=== PATIENT | female | born 1950 | race Caucasian/White ===

== ENCOUNTER 2018-02-28 09:03 | Emergency (ER) | payer MEDICARE, OTHER ==
[~2018-02-28] VITALS: Ht 157.5 cm; Wt 75.5 kg
[~2018-02-28 09:03] MED LIST: AMOX500T PO; AUGM875T PO; MEDR4PAK3 PO
[2018-02-28 09:14] VITALS: BP 156/80; PULSE 75; RESP 18; TEMP 98; O2SAT 95
[2018-02-28 09:56] LABS: AUTOMATED NEUTROPHIL # 4.2 TH/MM3 (1.8-7.7); BASOPHIL # 0.1 TH/MM3 (0-0.2); EOSINOPHIL # 0.1 TH/MM3 (0-0.4); EOSINOPHIL % 1.4 % (0.0-4.0); HEMATOCRIT 41.2 % (35.0-46.0); HEMOGLOBIN 13.8 GM/DL (11.6-15.3); LYMPH % 26.9 % (9.0-44.0); LYMPHOCYTE # 1.8 TH/MM3 (1.0-4.8); MEAN CELL VOLUME 89.3 FL (80.0-100.0); MEAN CORPUSCULAR HEMOGLOBIN 29.8 PG (27.0-34.0); MEAN CORPUSCULAR HGB CONC 33.4 % (32.0-36.0); MEAN PLATELET VOLUME 8.3 FL (7.0-11.0); MONO % 6.6 % (0.0-8.0); MONOCYTE # 0.4 TH/MM3 (0-0.9); NEUT % 64.1 % (16.0-70.0); PLATELET COUNT 229 TH/MM3 (150-450); RED BLOOD COUNT 4.61 MIL/MM3 (4.00-5.30); RED CELL DISTRIBUTION WIDTH 12.5 % (11.6-17.2); WHITE BLOOD COUNT 6.6 TH/MM3 (4.0-11.0)
[2018-02-28 10:26] LABS: CALCIUM 8.7 MG/DL (8.5-10.1)
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
[2018-02-28 10:30] LABS: CREATININE 0.8 MG/DL (0.50-1.00)
[2018-02-28 10:41] LABS: ALBUMIN 3.2 GM/DL (3.4-5.0); MAGNESIUM 2.1 MG/DL (1.5-2.5)
[2018-02-28 10:44] LABS: ALT (GPT) 31 U/L (10-53); DIRECT BILIRUBIN ADULT 0.1 MG/DL (0.0-0.2)
[2018-02-28 10:45] LABS: AST (GOT) 20 U/L (15-37)
[2018-02-28 10:46] LABS: INDIRECT BILIRUBIN 0.3 MG/DL (0.0-0.8); TOTAL BILIRUBIN ADULT 0.4 MG/DL (0.2-1.0); TOTAL PROTEIN 6.8 GM/DL (6.4-8.2)
[2018-02-28 10:47] LABS: ALKALINE PHOSPHATASE 94 U/L (45-117)
[2018-02-28 10:49] LABS: TROPONIN I LESS THAN 0.02 NG/ML (0.02-0.05)
[2018-02-28 11:17] VITALS: BP 144/77; PULSE 67; RESP 16; O2SAT 98
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
--- NOTE | 2018-02-28 16:16 | EKG ---
Date Performed: 02/28/2018 Time Performed: 10:03:12 PTAGE: 67 years EKG: Sinus rhythm WITH SINUS ARRHYTHMIA INFERIOR MYOCARDIAL INFARCTION ABNORMAL ECG NO PREVIOUS TRACING DOCTOR: Arnold De Souza Interpretating Date/Time 02/28/2018 16:11:55
== END 2018-02-28 11:54 | disposition home or self-care (01) ==
LOC: PHED 09:03
DX: R55 Syncope and collapse (principal); S70.12XA Contusion of left thigh, initial encounter; R53.1 Weakness; R42 Dizziness and giddiness; I49.8 Other specified cardiac arrhythmias; I25.2 Old myocardial infarction; R94.31 Abnormal electrocardiogram [ECG] [EKG]; Z86.69 Personal history of other diseases of the nervous system and sense organs; V18.4XXA Pedal cycle driver injured in noncollision transport accident in traffic accident, initial encounter
CPT/HCPCS: 73552; 80048; 80076; 83735; 84443; 84484; 85025; 93005; 99285

== ENCOUNTER 2018-07-12 20:40 | Observation (INO) ==
[2018-07-12 20:52] VITALS: TEMP 98.4
[2018-07-12] MEDS ORDERED: Sod Chloride 0.9% Inj 1,000 ML IV.SIG ONE (20:54)
--- NOTE | 2018-07-12 21:04 | ED ---
HPI General Stated Complaint: cardiac/evac Time Seen by Provider: 07/12/18 20:54 Source: patient and EMS Mode of arrival: EMS Limitations: no limitations History of Present Illness HPI narrative: The patient is a 67-year-old female that was brought in by EMS for palpitations and chest pain that started around 7:30 PM. Paramedics reports that on arrival heart rate was 240 bpm and was not responding to vagal maneuvers so they gave her 6 mg of adenosine IV with resolution of her tachycardia and a resting heart rate on arrival of 88 bpm. Patient on arrival stated that she had no more chest pain or shortness of breath. She reports the past few days of feeling palpitations as well as fatigue with normal activity. She does play tennis and exercise on a daily basis. Also reports feeling lightheaded at times and was evaluated by her primary care physician for possible vertigo. Denies spinning-like sensation. Denies recent travel. Denies previous blood clots. States she is not taking any medications. MD complaint: chest pain Complete Quality Measures for STEMI Alert Patients STEMI Alert: No Onset (ago): hour(s) (2) Duration: now resolved Onset: during rest Pain location: substernal Severity: moderate Quality: tightness Pain radiation: none Relieving factors: other (adenosine) Associated symptoms: dyspnea and palpitations Treatments prior to arrival chest pain: other (Adenosine) Related Data Home Medications Medication Instructions Recorded Confirmed No Known Home Medications 07/12/18 07/12/18 Allergies Allergy/AdvReac Type Severity Reaction Status Date / Time fexofenadine Allergy Intermediate Rash Verified 07/12/18 20:52 Review of Systems ROS: all other systems reviewed are negative Cardiovascular Reports chest pain, Reports chest pain at rest, Reports chest pain with activity , Reports rapid heart rate, Denies edema, Denies irregular heart rhythm, Denies leg edema, Reports lightheadedness, Reports palpitations and Denies dyspnea on exertion Respiratory Reports system reviewed and no additional complaints, except as docu [facility] Medical History Medical History Patient denies medical problems (Acute) Surgical History Surgical History Hx of breast surgery (Acute) Hx of knee surgery (Acute) Social History Social History (Reviewed 07/12/18 @ 21:03 by NATALIE Antonio Substance History: No History of Abuse Smoking Status: Former smoker How Often Do You Have a Drink Containing Alcohol: Never Recent Travel in [facility] within the Last 8 Weeks: No Recent Out of Country Travel within the Last 8 Weeks: No Immunization History Tetanus Immunization: Unable to Assess Hx Influenza Vaccine This Season: No Exam Narrative Exam Narrative: GENERAL: Alert and oriented in no distress SKIN: Focused skin assessment warm/dry. HEAD: Atraumatic. Normocephalic. EYES: Pupils equal and round. No scleral icterus. No injection or drainage. ENT: No nasal bleeding or discharge. Mucous membranes pink and moist. NECK: Trachea midline. No JVD. CARDIOVASCULAR: Regular rate and rhythm. No murmur appreciated. RESPIRATORY: No accessory muscle use. Clear to auscultation. Breath sounds equal bilaterally. GASTROINTESTINAL: Abdomen soft, non-tender, nondistended. Hepatic and splenic margins not palpable. MUSCULOSKELETAL: No obvious deformities. No clubbing. No cyanosis. No edema. NEUROLOGICAL: Awake and alert. No obvious cranial nerve deficits. Motor grossly within normal limits. Normal speech. PSYCHIATRIC: Appropriate mood and affect; insight and judgment normal. Course Reevaluation(s) Reevaluation #1: Elevated d-dimer of 0.[address] angiogram to rule out pulmonary embolism. Patient still asymptomatic without any chest pain or shortness of breath. Stable vitals blood pressure 126/71 pulse of 88 bpm. Time: 22:14 Initial Documented Vital Signs Temperature 98.4 F 07/12/18 20:46 Pulse Rate 89 07/12/18 20:46 Respiratory Rate 18 07/12/18 20:46 Blood Pressure 126/71 07/12/18 20:46 Pulse Oximetry 98 07/12/18 20:46 Last Documented Vital Signs Temperature 98.4 F 07/12/18 20:52 Pulse Rate 59 L 07/13/18 06:00 Respiratory Rate 18 07/13/18 06:00 Blood Pressure 119/55 L 07/13/18 06:00 Pulse Oximetry 97 07/13/18 06:00 Medical Decision Making MDM Narrative Medical Screen Exam Complete: Yes Emergency Medical Condition: Yes Lab Data Result diagrams: 07/12/18 21:05 07/12/18 21:05 Lab Results 08/15/18 08/15/18 08/15/18 Range/Units 21:05 21:05 21:05 WBC 10.4 (4.0-11.0) th/mm3 RBC 4.64 (4.00-5.30) mil/mm3 Hgb 14.5 (11.6-15.3) gm/dL Hct 42.5 (35.0-46.0) % MCV 91.7 (80.0-100.0) fL MCH 31.3 (27.0-34.0) pg MCHC 34.2 (32.0-36.0) % RDW 13.2 (11.6-17.2) % Plt Count 227 (150-450) th/mm3 MPV 8.7 (7.0-11.0) fL Neut % (Auto) 69.9 (16.0-70.0) % Lymph % (Auto) 23.4 (9.0-44.0) % [place] % (Auto) 5.6 (0.0-8.0) % Eos % (Auto) 0.6 (0.0-4.0) % Baso % (Auto) 0.5 (0.0-2.0) % Neut # (Auto) 7.3 (1.8-7.7) th/mm3 Lymph # (Auto) 2.4 (1.0-4.8) th/mm3 [place] # (Auto) 0.6 (0.0-0.9) th/mm3 Eos # (Auto) 0.1 (0.0-0.4) th/mm3 Baso # (Auto) 0.1 (0.0-0.2) th/mm3 WBC Differential . Differential Comment Auto diff final PT (9.8-11.6) sec INR Ratio APTT (24.3-30.1) sec D-Dimer Quant (PE/DVT) 0.53 H (0.00-0.50) mg/L FEU Sodium 140 (136-145) meq/L Potassium 3.7 (3.5-5.1) meq/L Chloride 106 (98-107) meq/L Carbon Dioxide 26.7 (21.0-32.0) meq/L Anion Gap 7 (5-15) meq/L BUN 23 H (7-18) mg/dL Creatinine 0.83 (0.50-1.00) mg/dL Estimated GFR 69 L (>89) mL/min Random Glucose 135 H (74-106) mg/dL Calcium 8.5 (8.5-10.1) mg/dL Total Bilirubin 0.3 (0.2-1.0) mg/dL AST 98 H (15-37) U/L ALT 116 H (10-53) U/L Alkaline Phosphatase 91 (45-117) U/L Total Creatine Kinase 66 (26-192) U/L Troponin I 0.03 (0.02-0.05) ng/mL Total Protein 6.9 (6.4-8.2) g/dL Albumin 3.2 L (3.4-5.0) g/dL 07/12/18 07/13/18 07/13/18 Range/Units 21:05 03:10 06:35 WBC (4.0-11.0) th/mm3 RBC (4.00-5.30) mil/mm3 Hgb (11.6-15.3) gm/dL Hct (35.0-46.0) % MCV (80.0-100.0) fL MCH (27.0-34.0) pg MCHC (32.0-36.0) % RDW (11.6-17.2) % Plt Count (150-450) th/mm3 MPV (7.0-11.0) fL Neut % (Auto) (16.0-70.0) % Lymph % (Auto) (9.0-44.0) % [place] % (Auto) (0.0-8.0) % Eos % (Auto) (0.0-4.0) % Baso % (Auto) (0.0-2.0) % Neut # (Auto) (1.8-7.7) th/mm3 Lymph # (Auto) (1.0-4.8) th/mm3 [place] # (Auto) (0.0-0.9) th/mm3 Eos # (Auto) (0.0-0.4) th/mm3 Baso # (Auto) (0.0-0.2) th/mm3 WBC Differential Differential Comment PT 10.1 (9.8-11.6) sec INR 1.0 Ratio APTT 24.4 (24.3-30.1) sec D-Dimer Quant (PE/DVT) (0.00-0.50) mg/L FEU Sodium (136-145) meq/L Potassium (3.5-5.1) meq/L Chloride (98-107) meq/L Carbon Dioxide (21.0-32.0) meq/L Anion Gap (5-15) meq/L BUN (7-18) mg/dL Creatinine (0.50-1.00) mg/dL Estimated GFR (>89) mL/min Random Glucose (74-106) mg/dL Calcium (8.5-10.1) mg/dL Total Bilirubin (0.2-1.0) mg/dL AST (15-37) U/L ALT (10-53) U/L Alkaline Phosphatase (45-117) U/L Total Creatine Kinase 120 64 (26-192) U/L Troponin I 0.49 H D 0.47 H (0.02-0.05) ng/mL Total Protein (6.4-8.2) g/dL Albumin (3.4-5.0) g/dL Imaging Data Radiologist's impression: Chest X-Ray 07/12/18 20:54 CONCLUSION: Moderate commentated cardiomegaly without infiltrate or failure. Marked scoliosis convexity directed towards the right Chest CTA 07/12/18 23:06 CONCLUSION: 1. No pulmonary embolus. 2. Gallstone 3. Small left renal stones. ECG Data Attestation: I personally reviewed and interpreted this ECG as follows: Interpretation: EKG obtained 8:56 PM reveals sinus rhythm with a rate of 88 bpm. QRS S 83, SC 128, QTc within normal limits. Nonspecific ST-T wave abnormalities. Normal axis. No STEMI Discharge Plan Discharge Disposition Patient Disposition: 30 Still Patient Discharge Condition Condition: Stable Discharge Order Discharge Orders: Discharge Order (Routine); Ordered 07/13/18 Ordered By: Kelley Severino Discharge Details Anticipated Discharge Date: 07/13/18 Diagnosis: SVT (supraventricular tachycardia) Physicians Team ED Provider: Arvind Mata Primary Care Provider: Deion Dela Cruz Attending Provider: Vel Klein Other Providers: Ryley Ayala Discharge Interventions Interventions: ED Discharge Assessment Last Done: 07/13/18 12:40 Status ED Status: Left Department Discharge Information Discharge Date/Time: 07/13/18 13:17
[2018-07-12 21:23] LABS: Baso # (Auto) 0.1 th/mm3 (0.0-0.2); Baso % (Auto) 0.5 % (0.0-2.0); Eos # (Auto) 0.1 th/mm3 (0.0-0.4); Eos % (Auto) 0.6 % (0.0-4.0); Hematocrit 42.5 % (35.0-46.0); Hemoglobin 14.5 gm/dL (11.6-15.3); Lymph # (Auto) 2.4 th/mm3 (1.0-4.8); Lymph % (Auto) 23.4 % (9.0-44.0); Mean Corpuscular HGB Conc 34.2 % (32.0-36.0); Mean Corpuscular Hemoglobin 31.3 pg (27.0-34.0); Mean Corpuscular Volume 91.7 fL (80.0-100.0); Mean Platelet Volume 8.7 fL (7.0-11.0); Mono # (Auto) 0.6 th/mm3 (0.0-0.9); Mono % (Auto) 5.6 % (0.0-8.0); Neut # (Auto) 7.3 th/mm3 (1.8-7.7); Neut % (Auto) 69.9 % (16.0-70.0); Platelet Count 227 th/mm3 (150-450); Red Blood Count 4.64 mil/mm3 (4.00-5.30); Red Cell Distribution Width 13.2 % (11.6-17.2); White Blood Count 10.4 th/mm3 (4.0-11.0)
[2018-07-12 21:40] LABS: Albumin 3.2 g/dL (3.4-5.0); Anion Gap 7 meq/L (5-15); Aspartate Aminotransferase 98 U/L (15-37); Blood Urea Nitrogen 23 mg/dL (7-18); Calcium 8.5 mg/dL (8.5-10.1); Carbon Dioxide 26.7 meq/L (21.0-32.0); Chloride 106 meq/L (98-107); Glomerular Filtration Rate 69 mL/min (>89); Glucose,Random 135 mg/dL (74-106); Potassium 3.7 meq/L (3.5-5.1); Sodium 140 meq/L (136-145)
[2018-07-12 21:47] LABS: Alanine Aminotransferase 116 U/L (10-53); Alkaline Phosphatase 91 U/L (45-117); Total Protein 6.9 g/dL (6.4-8.2); Troponin I 0.03 ng/mL (0.02-0.05)
[2018-07-12 21:48] LABS: Creatine Kinase 66 U/L (26-192)
--- NOTE | 2018-07-12 21:53 | XR ---
EXAM DATE: 07/12/2018 9:17 PM EDT AGE/SEX: 67 years / Female INDICATIONS: Short of breath. CLINICAL DATA: This is the patient's initial encounter. Patient reports that signs and symptoms have been present for 1 day and indicates a pain score of 0/10. MEDICAL/SURGICAL HISTORY: None. None. COMPARISON: No prior exams available for comparison. FINDINGS: Marked scoliosis with moderate cardiomegaly. There is no infiltrate or failure. There is no significant pleural effusion. CONCLUSION: Moderate commentated cardiomegaly without infiltrate or failure. Marked scoliosis convexity directed towards the right Electronically signed by: Charlie Iyer MD 07/12/2018 9:51 PM EDT
[2018-07-12 22:54] LABS: Activated Partial Thrombo Time 24.4 sec (24.3-30.1); Prothrombin Time 10.1 sec (9.8-11.6)
--- NOTE | 2018-07-12 23:35 | CT ---
EXAM DATE: 07/12/2018 11:22 PM EDT AGE/SEX: 67 years / Female INDICATIONS: Chest pain, elevated D-dimer with tachycardia. CLINICAL DATA: This is the patient's initial encounter. Patient reports that signs and symptoms have been present for 1 day and indicates a pain score of 4/10. MEDICAL/SURGICAL HISTORY: None. None. RADIATION DOSE: 10.22 CTDI (mGy) COMPARISON: No prior exams available for comparison. TECHNIQUE: Volumetric scanning was performed using a multi-row detector CT scanner during bolus infu marilyn of 74 ml Omnipaque 350 (iohexol) nonionic water-soluble contrast as a single exam dose. The jimmie a was post processed with a variety of visualization algorithms including full volume maximum intensi ty projection and sliding thin slab reformation. Using automated exposure control and adjustment of t he mA and/or kV according to patient size, radiation dose was kept as low as reasonably achievable to obtain optimal diagnostic quality images. DICOM format image data is available electronically for r eview and comparison. FINDINGS: Pulmonary Arteries: No filling defects are seen in the pulmonary arteries out to the subsegmental ve ssels. The left and right pulmonary arteries are normal in diameter. Lung: There is minimal increased density at the lateral posterior left lingula likely related to min imal atelectasis. Effusion: None. Mediastinum: No evidence of mediastinal or hilar adenopathy. Other: The axilla is unremarkable. There is a dextroscoliosis of the thoracic spine. There is a calc ified gallstone in a nondistended gallbladder. There are small nonobstructing left renal stones seen. CONCLUSION: 1. No pulmonary embolus. 2. Gallstone 3. Small left renal stones. Electronically signed by: Humberto Topete MD 07/12/2018 11:33 PM EDT
[2018-07-13] MEDS ORDERED: Acetaminophen 325 MG Tablet PO PRN (00:45)
[2018-07-13 04:15] LABS: Troponin I 0.49 ng/mL (0.02-0.05)
[2018-07-13 06:40] VITALS: BP 119/55; PULSE 59; RESP 18; O2SAT 97
[2018-07-13 07:19] LABS: Troponin I 0.47 ng/mL (0.02-0.05)
--- NOTE | 2018-07-13 07:53 | P.CONCA ---
History of Present Illness Primary Care Provider: Deion Dela Cruz History of Present Illness: 67-year-old female with a past medical history of orthostatic hypotension who presented by EMS after an episode of SVT. The patient was seen in our office earlier this year for positional dizziness with associated chest pain. She had an ETT SPECT in January with no evidence of ischemia. She had an echocardiogram in February which was essentially normal. She had an event monitor in February that showed lightheadedness associated with NSR and PACs. Her symptoms were associated with orthostatic hypotension. The patient continues to have episodes of lightheadedness, to this week after working out, but states she does not really much drink water even before/during her workouts. She states this is because she subscribes to a low-sodium diet and is never thirsty. Regardless, yesterday evening, the patient was having palpitations. She was having a stressful phone call regarding her nephew at the time. She states that normally she gets heart racing sensation about twice per year. She states her symptoms usually only lasts about a minute, but after symptoms persisted for over 20 minutes she called EMS. Reportedly EMS found the patient in SVT with heart rate to 40, no strips available here in the ED. Vagal maneuvers were unsuccessful. Patient was given adenosine 6 mg and converted to NSR. Has remained NSR and asymptomatic here in the ED overnight. Review of Systems All other systems reviewed negative except as stated in HPI PMFSH - History History Provided By: Patient - Medical History Medical History: Medical History (Last Reviewed 07/12/18 @ 21:03 by Arvind Mata DO) Patient denies medical problems - Surgical History Surgical History: Surgical History (Last Reviewed 07/12/18 @ 21:03 by Arvind Mata DO) Hx of breast surgery Hx of knee surgery - Tobacco History Smoking Status: Former smoker - Alcohol History How Often Do You Have a Drink Containing Alcohol: Never - Substance Use History Substance History: No History of Abuse - Travel History Recent Travel in the [place] Within the Last 8 Weeks: No Recent Travel Out of the Country Within the Last 8 Weeks: No - Immunization History Tetanus Immunization: Unable to Assess Hx Influenza Vaccine This Season: No Medications and Allergies Active Medications: Active Medications Acetaminophen (Tylenol) 650 mg PO Q4H PRN PRN Reason: Temp > 100.4 Lactulose (Lactulose Liq) 30 ml PO DAILY PRN PRN Reason: SEVERE CONSITIPATION Ondansetron HCl (Zofran Inj) 4 mg IV.PUSH Q6H PRN PRN Reason: NAUSEA OR VOMITING Allergies Allergy/AdvReac Type Severity Reaction Status Date / Time fexofenadine Allergy Intermediate Rash Verified 07/12/18 20:52 Home Medications Medication Instructions Recorded Confirmed Type No Known Home Medications 07/12/18 07/12/18 History Exam Vital signs: Vital Signs 07/12/18 20:46 07/12/18 20:52 07/12/18 23:00 Temperature 98.4 F 98.4 F Pulse Rate 89 88 74 Respiratory Rate 16 Blood Pressure 126/71 126/71 136/63 Pulse Oximetry 98 98 99 07/13/18 00:45 07/13/18 03:00 07/13/18 06:00 Temperature Pulse Rate 70 60 59 L Respiratory Rate Blood Pressure 127/77 112/57 L 119/55 L Pulse Oximetry 98 99 97 Intake & Output 07/12/18 07/13/18 07/13/18 18:59 06:59 18:59 Weight 165 lb Narrative: GENERAL: Well-developed well-nourished. In no acute distress. NECK: No carotid bruits. No JVD. CARDIOVASCULAR: Regular rate and rhythm. No murmur appreciated. RESPIRATORY: No accessory muscle use. Clear to auscultation. Breath sounds equal bilaterally. MUSCULOSKELETAL: No clubbing or cyanosis. No edema. NEUROLOGICAL: Awake and alert. Normal speech. Results 07/12/18 21:05 07/12/18 21:05 Cardiac Enzymes 07/12/18 07/13/18 07/13/18 Range/Units 21:05 03:10 06:35 AST 98 H (15-37) U/L Troponin I 0.03 0.49 H D 0.47 H (0.02-0.05) ng/mL Coagulation 07/12/18 Range/Units 21:05 PT 10.1 (9.8-11.6) sec APTT 24.4 (24.3-30.1) sec CBC 07/12/18 Range/Units 21:05 WBC 10.4 (4.0-11.0) th/mm3 RBC 4.64 (4.00-5.30) mil/mm3 Hgb 14.5 (11.6-15.3) gm/dL Hct 42.5 (35.0-46.0) % Plt Count 227 (150-450) th/mm3 Neut # (Auto) 7.3 (1.8-7.7) th/mm3 Lymph # (Auto) 2.4 (1.0-4.8) th/mm3 [place] # (Auto) 0.6 (0.0-0.9) th/mm3 Eos # (Auto) 0.1 (0.0-0.4) th/mm3 Baso # (Auto) 0.1 (0.0-0.2) th/mm3 Comprehensive Metabolic Panel 07/12/18 Range/Units 21:05 Sodium 140 (136-145) meq/L Potassium 3.7 (3.5-5.1) meq/L Chloride 106 (98-107) meq/L Carbon Dioxide 26.7 (21.0-32.0) meq/L BUN 23 H (7-18) mg/dL Creatinine 0.83 (0.50-1.00) mg/dL Calcium 8.5 (8.5-10.1) mg/dL AST 98 H (15-37) U/L ALT 116 H (10-53) U/L Alkaline Phosphatase 91 (45-117) U/L Total Protein 6.9 (6.4-8.2) g/dL Albumin 3.2 L (3.4-5.0) g/dL Intake and Output 07/12/18 07/13/18 07/13/18 22:59 06:59 14:59 Other: Weight 165 lb Assessment and Plan - Plan 67-year-old female with a past medical history of orthostatic hypotension who presented by EMS after an episode of SVT per report. SVT: Recent negative cardiac workup. Patient educated on vagal maneuvers. Heart rate currently 59, not a candidate for AV ervin agent with resting bradycardia. Okay for discharge from cardiology perspective today and will plan on outpatient EP evaluation for possible SVT ablation. Orthostatic dizziness: Encouraged hydration. Elevated troponin: Troponin 0.03->0.49->0.47, demand mediated secondary to tachycardia and recent stress test nonischemic. No further workup indicated at this time. Discussed Condition With: Patient, ED RN, Dr. Ayala
--- NOTE | 2018-07-13 09:35 | P.HP ---
<Kelley Severino W - Last Filed: 07/13/18 12:22> History of Present Illness Primary Care Physician: Deion Dela Cruz Chief Complaint: heart racing last night- resolved History of Present Illness: This is a 67-year-old female with a past medical history of orthostatic hypotension, arthritis, sciatica, who presented by EMS after an episode of SVT. Yesterday evening, the patient was having palpitations. She was having a stressful phone call regarding her nephew at the time. She states that normally she gets heart racing sensation about twice per year. She states her symptoms usually only lasts about a minute, but after symptoms persisted for over 20 minutes she called EMS. Reportedly EMS found the patient in SVT with heart rate upto 240, no strips available here in the ED. Vagal maneuvers were unsuccessful. Patient was given adenosine 6 mg and converted to NSR. Has remained NSR and asymptomatic here in the ED overnight. Reports feeling much better at this time and is asking to go home. Denies chest pain shortness of breath nausea vomiting diarrhea constipation fevers chills cough or congestion. past medical history orthostatic hypotension, arthritis, sciatica past surgical history knee arthroplasty social history Denies ETOH use denies tobacco use now or in the past family medical history reviewed and noncontributory - Diagnosis (1) SVT (supraventricular tachycardia) Review of Systems All other systems reviewed negative except as stated in HPI PMFSH - History History Provided By: Patient - Medical History Medical History: Medical History (Last Reviewed 07/12/18 @ 21:03 by Arvind Mata DO) Patient denies medical problems - Surgical History Surgical History: Surgical History (Last Reviewed 07/12/18 @ 21:03 by Arvind Mata DO) Hx of breast surgery Hx of knee surgery - Tobacco History Smoking Status: Former smoker - Alcohol History How Often Do You Have a Drink Containing Alcohol: Never - Substance Use History Substance History: No History of Abuse - Travel History Recent Travel in the [place] Within the Last 8 Weeks: No Recent Travel Out of the Country Within the Last 8 Weeks: No - Immunization History Tetanus Immunization: Unable to Assess Hx Influenza Vaccine This Season: No Medications and Allergies Allergies Allergy/AdvReac Type Severity Reaction Status Date / Time fexofenadine Allergy Intermediate Rash Verified 07/12/18 20:52 Home Medications Medication Instructions Recorded Confirmed Type No Known Home Medications 07/12/18 07/12/18 History Active Medications: Active Medications Acetaminophen (Tylenol) 650 mg PO Q4H PRN PRN Reason: Temp > 100.4 Lactulose (Lactulose Liq) 30 ml PO DAILY PRN PRN Reason: SEVERE CONSITIPATION Ondansetron HCl (Zofran Inj) 4 mg IV.PUSH Q6H PRN PRN Reason: NAUSEA OR VOMITING Exam Vital signs: Vital Signs 07/12/18 20:46 07/12/18 20:52 07/12/18 23:00 Temperature 98.4 F 98.4 F Pulse Rate 89 88 74 Respiratory Rate 18 18 16 Blood Pressure 126/71 126/71 136/63 Pulse Oximetry 98 98 99 07/13/18 00:45 07/13/18 03:00 07/13/18 06:00 Temperature Pulse Rate 70 60 59 L Respiratory Rate 18 Blood Pressure 127/77 112/57 L 119/55 L Pulse Oximetry 98 99 97 Intake & Output 07/12/18 07/13/18 07/13/18 18:59 06:59 18:59 Weight 74.843 kg Narrative: GENERAL: This is a well-nourished, well-developed patient, in no apparent distress. CARDIOVASCULAR: Regular rate and rhythm RESPIRATORY: Clear to auscultation. Breath sounds equal bilaterally. GASTROINTESTINAL: Abdomen soft, non-tender, nondistended. Normal active bowel sounds MUSCULOSKELETAL: Extremities without clubbing, cyanosis, or edema. NEURO: Alert & Oriented x4 to person, place, time, situation. Moves all ext x4 Results - Labs CBC & Chem 7: 07/12/18 21:05 07/12/18 21:05 Labs: Laboratory Results - last 24 hr 07/12/18 07/12/18 07/12/18 21:05 21:05 21:05 WBC 10.4 RBC 4.64 Hgb 14.5 Hct 42.5 MCV 91.7 MCH 31.3 MCHC 34.2 RDW 13.2 Plt Count 227 MPV 8.7 Neut % (Auto) 69.9 Lymph % (Auto) 23.4 [place] % (Auto) 5.6 Eos % (Auto) 0.6 Baso % (Auto) 0.5 Neut # (Auto) 7.3 Lymph # (Auto) 2.4 [place] # (Auto) 0.6 Eos # (Auto) 0.1 Baso # (Auto) 0.1 WBC Differential . Differential Comment Auto diff final PT INR APTT D-Dimer Quant (PE/DVT) 0.53 H Sodium 140 Potassium 3.7 Chloride 106 Carbon Dioxide 26.7 Anion Gap 7 BUN 23 H Creatinine 0.83 Estimated GFR 69 L Random Glucose 135 H Calcium 8.5 Total Bilirubin 0.3 AST 98 H ALT 116 H Alkaline Phosphatase 91 Total Creatine Kinase 66 Troponin I 0.03 Total Protein 6.9 Albumin 3.2 L 07/12/18 07/13/18 07/13/18 21:05 03:10 06:35 WBC RBC Hgb Hct MCV MCH MCHC RDW Plt Count MPV Neut % (Auto) Lymph % (Auto) [place] % (Auto) Eos % (Auto) Baso % (Auto) Neut # (Auto) Lymph # (Auto) [place] # (Auto) Eos # (Auto) Baso # (Auto) WBC Differential Differential Comment PT 10.1 INR 1.0 APTT 24.4 D-Dimer Quant (PE/DVT) Sodium Potassium Chloride Carbon Dioxide Anion Gap BUN Creatinine Estimated GFR Random Glucose Calcium Total Bilirubin AST ALT Alkaline Phosphatase Total Creatine Kinase 120 64 Troponin I 0.49 H D 0.47 H Total Protein Albumin - Imaging Impressions Chest X-Ray 07/12/18 20:54 CONCLUSION: Moderate commentated cardiomegaly without infiltrate or failure. Marked scoliosis convexity directed towards the right Chest CTA 07/12/18 23:06 CONCLUSION: 1. No pulmonary embolus. 2. Gallstone 3. Small left renal stones. Caprini VTE Risk Assessment Caprini VTE Risk Assessment: No/Low Risk (score <= 1) Caprini Risk Assessment Model: Point Value = 1 Point Value = 2 Point Value = 3 Point Value = 5 Age 41-60 Minor surgery BMI > 25 kg/m2 Swollen legs Varicose veins or History of unexplained or recurrent spontaneous Oral contraceptives or hormone replacement Sepsis (< 1 month) Serious lung disease, including pneumonia (< 1 month) Abnormal pulmonary function Acute myocardial infarction Congestive heart failure (< 1 month) History of inflammatory bowel disease Medical patient at bed rest Age 61-74 Arthroscopic surgery Major open surgery (> 45 min) Laparoscopic surgery (> 45 min) Malignancy Confined to bed (> 72 hours) Immobilizing plaster cast Central venous access Age >= 75 History of VTE Family history of VTE Factor V Leiden Prothrombin [id number] Lupus anticoagulant Anticardiolipin antibodies Elevated serum homocysteine Heparin-induced thrombocytopenia Other congenital or acquired thrombophilia Stroke (< 1 month) Elective arthroplasty Hip, pelvis, or leg fracture Acute spinal cord injury (< 1 month) Prophylaxis Regimen: Total Risk Factor Score Risk Level Prophylaxis Regimen 0-1 Low Early ambulation 2 Moderate Order ONE of the following: *Sequential Compression Device (SCD) *Heparin 5000 units SQ BID 3-4 Higher Order ONE of the following medications: *Heparin 5000 units SQ TID *Enoxaparin/Lovenox 40 mg SQ daily (WT < 150 kg, CrCl > 30 mL/min) *Enoxaparin/Lovenox 30 mg SQ daily (WT < 150 kg, CrCl > 10-29 mL/min) *Enoxaparin/Lovenox 30 mg SQ BID (WT < 150 kg, CrCl > 30 mL/min) AND/OR *Sequential Compression Device (SCD) 5 or more Highest Order ONE of the following medications: *Heparin 5000 units SQ TID (Preferred with Epidurals) *Enoxaparin/Lovenox 40 mg SQ daily (WT < 150 kg, CrCl > 30 mL/min) *Enoxaparin/Lovenox 30 mg SQ daily (WT < 150 kg, CrCl > 10-29 mL/min) *Enoxaparin/Lovenox 30 mg SQ BID (WT < 150 kg, CrCl > 30 mL/min) AND *Sequential Compression Device (SCD) Assessment and Plan - Assessment (1) SVT (supraventricular tachycardia) Code(s): I47.1 - Supraventricular tachycardia Status: Acute Plan: This is a 67-year-old female with a past medical history of orthostatic hypotension, arthritis, sciatica, who presented by EMS after an episode of SVT. Yesterday evening, the patient was having palpitations. She was having a stressful phone call regarding her nephew at the time. She states that normally she gets heart racing sensation about twice per year. She states her symptoms usually only lasts about a minute, but after symptoms persisted for over 20 minutes she called EMS. Reportedly EMS found the patient in SVT with heart rate up to 240, no strips available here in the ED. Vagal maneuvers were unsuccessful. Patient was given adenosine 6 mg and converted to NSR. Has remained NSR and asymptomatic here in the ED overnight. SVT Consult to cardiology Per cardiology: The patient was seen in the cardiology office earlier this year for positional dizziness with associated chest pain. She had an ETT SPECT in January with no evidence of ischemia. She had an echocardiogram in February which was essentially normal. She had an event monitor in February that showed lightheadedness associated with NSR and PACs. Her symptoms were associated with orthostatic hypotension. The patient continues to have episodes of lightheadedness, to this week after working out, but states she does not really much drink water even before/during her workouts. She states this is because she subscribes to a low-sodium diet and is never thirsty. Recent negative cardiac workup. Patient educated on vagal maneuvers. Heart rate currently 59, not a candidate for AV ervin agent with resting bradycardia. Okay for discharge from cardiology perspective today and will plan on outpatient EP evaluation for possible SVT ablation. Orthostatic dizziness: Encouraged hydration. Elevated troponin: Troponin 0.03->0.49->0.47, demand mediated secondary to tachycardia and recent stress test nonischemic. No further workup indicated at this time. Patient cleared for DC per cardiology who recommends outpatient follow up with Dr. Mims for possible EP study and ablation <Vel Klein - Last Filed: 07/18/18 12:30> History of Present Illness Primary Care Physician: Deion Dela Cruz - Diagnosis (1) SVT (supraventricular tachycardia) [facility] - Medical History Medical History: Medical History (Last Reviewed 07/12/18 @ 21:03 by Arvind Mata DO) Patient denies medical problems - Surgical History Surgical History: Surgical History (Last Reviewed 07/12/18 @ 21:03 by Arvind Mata, ) Hx of breast surgery Hx of knee surgery Results - Labs CBC & Chem 7: 07/12/18 21:05 07/12/18 21:05 Caprini VTE Risk Assessment Caprini Risk Assessment Model: Point Value = 1 Point Value = 2 Point Value = 3 Point Value = 5 Age 41-60 Minor surgery BMI > 25 kg/m2 Swollen legs Varicose veins or History of unexplained or recurrent spontaneous Oral contraceptives or hormone replacement Sepsis (< 1 month) Serious lung disease, including pneumonia (< 1 month) Abnormal pulmonary function Acute myocardial infarction Congestive heart failure (< 1 month) History of inflammatory bowel disease Medical patient at bed rest Age 61-74 Arthroscopic surgery Major open surgery (> 45 min) Laparoscopic surgery (> 45 min) Malignancy Confined to bed (> 72 hours) Immobilizing plaster cast Central venous access Age >= 75 History of VTE Family history of VTE Factor V Leiden Prothrombin [id number] Lupus anticoagulant Anticardiolipin antibodies Elevated serum homocysteine Heparin-induced thrombocytopenia Other congenital or acquired thrombophilia Stroke (< 1 month) Elective arthroplasty Hip, pelvis, or leg fracture Acute spinal cord injury (< 1 month) Prophylaxis Regimen: Total Risk Factor Score Risk Level Prophylaxis Regimen 0-1 Low Early ambulation 2 Moderate Order ONE of the following: *Sequential Compression Device (SCD) *Heparin 5000 units SQ BID 3-4 Higher Order ONE of the following medications: *Heparin 5000 units SQ TID *Enoxaparin/Lovenox 40 mg SQ daily (WT < 150 kg, CrCl > 30 mL/min) *Enoxaparin/Lovenox 30 mg SQ daily (WT < 150 kg, CrCl > 10-29 mL/min) *Enoxaparin/Lovenox 30 mg SQ BID (WT < 150 kg, CrCl > 30 mL/min) AND/OR *Sequential Compression Device (SCD) 5 or more Highest Order ONE of the following medications: *Heparin 5000 units SQ TID (Preferred with Epidurals) *Enoxaparin/Lovenox 40 mg SQ daily (WT < 150 kg, CrCl > 30 mL/min) *Enoxaparin/Lovenox 30 mg SQ daily (WT < 150 kg, CrCl > 10-29 mL/min) *Enoxaparin/Lovenox 30 mg SQ BID (WT < 150 kg, CrCl > 30 mL/min) AND *Sequential Compression Device (SCD) Assessment and Plan - Assessment (1) SVT (supraventricular tachycardia) Code(s): I47.1 - Supraventricular tachycardia Status: Acute - Attending Attestation Patient examined. Assessment and plan formulated with Kelley BARBA I agree with the above.
--- NOTE | 2018-07-13 09:37 | P.DS ---
<Kelley Severino W - Last Filed: 07/13/18 12:22> Date of admission: 07/13/18 00:45 Primary care physician: Deion Dela Cruz Attending physician on discharge: Vel Klein Anticipated date of discharge: 07/13/18 Brief History from admission: This is a 67-year-old female with a past medical history of orthostatic hypotension, arthritis, sciatica, who presented by EMS after an episode of SVT. Yesterday evening, the patient was having palpitations. She was having a stressful phone call regarding her nephew at the time. She states that normally she gets heart racing sensation about twice per year. She states her symptoms usually only lasts about a minute, but after symptoms persisted for over 20 minutes she called EMS. Reportedly EMS found the patient in SVT with heart rate upto 240, no strips available here in the ED. Vagal maneuvers were unsuccessful. Patient was given adenosine 6 mg and converted to NSR. Has remained NSR and asymptomatic here in the ED overnight. Reports feeling much better at this time and is asking to go home. Denies chest pain shortness of breath nausea vomiting diarrhea constipation fevers chills cough or congestion. past medical history orthostatic hypotension, arthritis, sciatica past surgical history knee arthroplasty social history Denies ETOH use denies tobacco use now or in the past family medical history reviewed and noncontributory DS: Diagnosis - Discharge Diagnosis (1) SVT (supraventricular tachycardia) Status: Acute DS: Summary Hospital Course: This is a 67-year-old female with a past medical history of orthostatic hypotension, arthritis, sciatica, who presented by EMS after an episode of SVT. Yesterday evening, the patient was having palpitations. She was having a stressful phone call regarding her nephew at the time. She states that normally she gets heart racing sensation about twice per year. She states her symptoms usually only lasts about a minute, but after symptoms persisted for over 20 minutes she called EMS. Reportedly EMS found the patient in SVT with heart rate up to 240, no strips available here in the ED. Vagal maneuvers were unsuccessful. Patient was given adenosine 6 mg and converted to NSR. Has remained NSR and asymptomatic here in the ED overnight. SVT Consult to cardiology Per cardiology: The patient was seen in the cardiology office earlier this year for positional dizziness with associated chest pain. She had an ETT SPECT in January with no evidence of ischemia. She had an echocardiogram in February which was essentially normal. She had an event monitor in February that showed lightheadedness associated with NSR and PACs. Her symptoms were associated with orthostatic hypotension. The patient continues to have episodes of lightheadedness, to this week after working out, but states she does not really much drink water even before/during her workouts. She states this is because she subscribes to a low-sodium diet and is never thirsty. Recent negative cardiac workup. Patient educated on vagal maneuvers. Heart rate currently 59, not a candidate for AV ervin agent with resting bradycardia. Okay for discharge from cardiology perspective today and will plan on outpatient EP evaluation for possible SVT ablation. Orthostatic dizziness: Encouraged hydration. Elevated troponin: Troponin 0.03->0.49->0.47, demand mediated secondary to tachycardia and recent stress test nonischemic. No further workup indicated at this time. Patient cleared for DC per cardiology who recommends outpatient follow up with Dr. Mims for possible EP study and ablation - Time Spent with Patient Total time spent providing and/or coordinating discharge services: Greater than 30 minutes Exam Vital signs: Vital Signs 07/12/18 20:46 07/12/18 20:52 07/12/18 23:00 Temperature 98.4 F 98.4 F Pulse Rate 89 88 74 Respiratory Rate 16 Blood Pressure 126/71 126/71 136/63 Pulse Oximetry 98 98 99 07/13/18 00:45 07/13/18 03:00 07/13/18 06:00 Temperature Pulse Rate 70 60 59 L Respiratory Rate 18 Blood Pressure 127/77 112/57 L 119/55 L Pulse Oximetry 98 99 97 Intake & Output 07/12/18 07/13/18 07/13/18 18:59 06:59 18:59 Weight 74.843 kg Narrative: GENERAL: This is a well-nourished, well-developed patient, in no apparent distress. CARDIOVASCULAR: Regular rate and rhythm RESPIRATORY: Clear to auscultation. Breath sounds equal bilaterally. GASTROINTESTINAL: Abdomen soft, non-tender, nondistended. Normal active bowel sounds MUSCULOSKELETAL: Extremities without clubbing, cyanosis, or edema. NEURO: Alert & Oriented x4 to person, place, time, situation. Moves all ext x4 Results Procedures completed during hospitalization: none Labs on day of discharge: Labs from last 24 hours 07/13/18 07/13/18 07/12/18 06:35 03:10 21:05 WBC RBC Hgb Hct MCV MCH MCHC RDW Plt Count MPV Neut % (Auto) Lymph % (Auto) [place] % (Auto) Eos % (Auto) Baso % (Auto) Neut # (Auto) Lymph # (Auto) [place] # (Auto) Eos # (Auto) Baso # (Auto) WBC Differential Differential Comment PT 10.1 INR 1.0 APTT 24.4 D-Dimer Quant (PE/DVT) Sodium Potassium Chloride Carbon Dioxide Anion Gap BUN Creatinine Estimated GFR Random Glucose Calcium Total Bilirubin AST ALT Alkaline Phosphatase Total Creatine Kinase 64 120 Troponin I 0.47 H 0.49 H D Total Protein Albumin 07/12/18 07/12/18 07/12/18 21:05 21:05 21:05 WBC 10.4 RBC 4.64 Hgb 14.5 Hct 42.5 MCV 91.7 MCH 31.3 MCHC 34.2 RDW 13.2 Plt Count 227 MPV 8.7 Neut % (Auto) 69.9 Lymph % (Auto) 23.4 [place] % (Auto) 5.6 Eos % (Auto) 0.6 Baso % (Auto) 0.5 Neut # (Auto) 7.3 Lymph # (Auto) 2.4 [place] # (Auto) 0.6 Eos # (Auto) 0.1 Baso # (Auto) 0.1 WBC Differential . Differential Comment Auto diff final PT INR APTT D-Dimer Quant (PE/DVT) 0.53 H Sodium 140 Potassium 3.7 Chloride 106 Carbon Dioxide 26.7 Anion Gap 7 BUN 23 H Creatinine 0.83 Estimated GFR 69 L Random Glucose 135 H Calcium 8.5 Total Bilirubin 0.3 AST 98 H ALT 116 H Alkaline Phosphatase 91 Total Creatine Kinase 66 Troponin I 0.03 Total Protein 6.9 Albumin 3.2 L - Impressions ITS Impressions Chest X-Ray 07/12/18 20:54 CONCLUSION: Moderate commentated cardiomegaly without infiltrate or failure. Marked scoliosis convexity directed towards the right Chest CTA 07/12/18 23:06 CONCLUSION: 1. No pulmonary embolus. 2. Gallstone 3. Small left renal stones. <Vel Klein - Last Filed: 07/18/18 12:30> Date of admission: 07/13/18 00:45 Primary care physician: Deion Dela Cruz DS: Diagnosis - Discharge Diagnosis (1) SVT (supraventricular tachycardia) Status: Acute DS: Summary Hospital Course: Patient examined. Assessment and plan formulated with Kelley Severino PA-C. I agree with the above. - Time Spent with Patient Total time spent providing and/or coordinating discharge services: Results - Impressions ITS Impressions Chest X-Ray 07/12/18 20:54 CONCLUSION: Moderate commentated cardiomegaly without infiltrate or failure. Marked scoliosis convexity directed towards the right Chest CTA 07/12/18 23:06 CONCLUSION: 1. No pulmonary embolus. 2. Gallstone 3. Small left renal stones. Discharge Plan - Discharge Order Discharge Orders: Discharge Order (Routine); Ordered 07/13/18 Ordered By: Kelley Severino - Discharge Details Anticipated Discharge Date: 07/13/18 - Physicians Team Primary Care Provider: Deion Dela Cruz Attending Provider: Vel Klein Other Providers: Ryley Ayala DO
[2018-07-13] MEDS ORDERED: ALPRAZolam 0.25 MG Tablet PO ONE (10:11)
--- NOTE | 2018-07-13 13:23 | ECG ---
Date Performed: 07/13/2018 Time Performed: 06:33:08 PTAGE: 67 years EKG: SINUS BRADYCARDIA POSSIBLE INFERIOR MYOCARDIAL INFARCTION BORDERLINE ECG PREVIOUS TRACING : 07/13/2018 03.18 Since the previous tracing, no significant change noted DOCTOR: Bakari Watson Interpretating Date/Time 07/13/2018 13:22:24
--- NOTE | 2018-07-13 13:23 | ECG ---
Date Performed: 07/12/2018 Time Performed: 20:56:31 PTAGE: 67 years EKG: Sinus rhythm POSSIBLE INFERIOR MYOCARDIAL INFARCTION BORDERLINE ECG PREVIOUS TRACING : 02/28/2018 10.03 Since the previous tracing, no significant change noted DOCTOR: Bakari Watson Interpretating Date/Time 07/13/2018 13:22:46
--- NOTE | 2018-07-13 13:23 | ECG ---
Date Performed: 07/13/2018 Time Performed: 03:18:24 PTAGE: 67 years EKG: Sinus rhythm POSSIBLE INFERIOR MYOCARDIAL INFARCTION BORDERLINE ECG PREVIOUS TRACING : 07/12/2018 20.56 Since the previous tracing, no significant change noted DOCTOR: Bakari Watson Interpretating Date/Time 07/13/2018 13:22:36
== END 2018-07-13 13:16 | disposition home or self-care (01) ==
LOC: NEDA 20:40 → NEPC 20:40 → NEDH 20:40
PROVIDERS: ADMIT Hospitalist; ATTEND Hospitalist

== ENCOUNTER 2018-08-27 01:13 | Observation (INO) ==
[2018-08-27 01:33] VITALS: TEMP 98.2
--- NOTE | 2018-08-27 04:43 | ED ---
HPI General Chief complaint: Extremity Problem,Nontraumatic Stated complaint: Lower lft leg pain x 1 day Time Seen by Provider: 08/27/18 04:25 Source: patient Mode of arrival: ambulatory Limitations: no limitations History of Present Illness HPI narrative: Patient had cardiac ablation secondary to supraventricular tachycardia several days ago. She comes in with 2 separate episodes 1 pain in her left lower calf and #2 a sudden headache. She almost never gets headaches. And this headache came on suddenly. Related Data Home Medications Medication Instructions Recorded Confirmed aspirin [Aspir-81] 81 mg PO DAILY 08/27/18 08/27/18 Allergies Allergy/AdvReac Type Severity Reaction Status Date / Time fexofenadine Allergy Intermediate Rash Verified 08/27/18 01:43 Review of Systems ROS: all other systems reviewed are negative [facility] Medical History Medical History Anxiety (Acute) Patient denies medical problems (Acute) Surgical History Surgical History Hx of breast surgery (Acute) Hx of knee surgery (Acute) Hx of prior ablation treatment (Acute) Family History Family History Sister Leukemia Father CVA (cerebral vascular accident) Myocardial infarct Mother CVA (cerebral vascular accident) Social History Social History Substance History: No History of Abuse Second Hand Smoke Exposure: No Smoking Status: Never smoker How Often Do You Have a Drink Containing Alcohol: Never Recent Travel in [facility] within the Last 8 Weeks: No Recent Out of Country Travel within the Last 8 Weeks: No Immunization History Tetanus Immunization: <5 Years Hx Influenza Vaccine This Season: No Exam Narrative Exam Narrative: GENERAL: Alert and oriented in no acute distress SKIN: Focused skin assessment warm/dry. HEAD: Atraumatic. Normocephalic. EYES: Pupils equal and round. No scleral icterus. No injection or drainage. ENT: No nasal bleeding or discharge. Mucous membranes pink and moist. NECK: Trachea midline. No JVD. No bruits and carotid pulses appropriate CARDIOVASCULAR: Regular rate and rhythm. No murmur appreciated. RESPIRATORY: No accessory muscle use. Clear to auscultation. Breath sounds equal bilaterally. GASTROINTESTINAL: Abdomen soft, non-tender, nondistended. Hepatic and splenic margins not palpable. MUSCULOSKELETAL: No obvious deformities. No clubbing. No cyanosis. No edema. Patient has localized tenderness to posterior calf NEUROLOGICAL: Awake and alert. No obvious cranial nerve deficits. Motor grossly within normal limits. Normal speech. PSYCHIATRIC: Appropriate mood and affect; insight and judgment normal. Course Reevaluation(s) Reevaluation #1: Studies completed and no evidence of vascular abnormality in brain or neck area. Also the echo of the left lower extremity showed no evidence of clot or injury in the venous or arterial system. Patient being admitted to the [facility] by [facility] for proper studies to make sure there is not a nidus for mural thrombus could cause both episodes. Time: 07:41 Initial Documented Vital Signs Temperature 98.2 F 08/27/18 01:30 Pulse Rate 67 08/27/18 01:30 Respiratory Rate 18 08/27/18 01:30 Blood Pressure 139/76 08/27/18 01:30 Pulse Oximetry 97 08/27/18 01:30 Last Documented Vital Signs Temperature 98.2 F 08/27/18 01:30 Pulse Rate 72 08/27/18 10:14 Respiratory Rate 16 08/27/18 10:14 Blood Pressure 135/77 08/27/18 10:14 Pulse Oximetry 97 08/27/18 10:14 Critical Care Time Critical Care Time: Yes Total Critical Care Time: 60 Attestation: None needed Medical Decision Making MDM Narrative Medical decision making narrative: Patient being admitted for potential of mural thrombus secondary to ambulation procedure that occurred 5 days before. Patient has 2 areas of potential embolization #1 brain #2 the left lower extremity. Medical Screen Exam Complete: Yes Emergency Medical Condition: Yes Lab Data Result diagrams: 08/27/18 05:00 08/27/18 05:00 Lab Results 08/27/18 08/27/18 08/27/18 Range/Units 05:00 05:00 05:00 CBC w Diff Auto diff final WBC 9.1 (4.0-11.0) th/mm3 RBC 4.59 (4.00-5.30) mil/mm3 Hgb 14.2 (11.6-15.3) gm/dL Hct 42.1 (35.0-46.0) % MCV 91.9 (80.0-100.0) fL MCH 30.9 (27.0-34.0) pg MCHC 33.6 (32.0-36.0) % RDW 12.2 (11.6-17.2) % Plt Count 238 (150-450) th/mm3 MPV 8.4 (7.0-11.0) fL Neut % (Auto) 58.5 (16.0-70.0) % Lymph % (Auto) 33.4 (9.0-44.0) % [place] % (Auto) 5.8 (0.0-8.0) % Eos % (Auto) 1.7 (0.0-4.0) % Baso % (Auto) 0.6 (0.0-2.0) % Neut # (Auto) 5.2 (1.8-7.7) th/mm3 Lymph # (Auto) 3.0 (1.0-4.8) th/mm3 [place] # (Auto) 0.5 (0.0-0.9) th/mm3 Eos # (Auto) 0.2 (0.0-0.4) th/mm3 Baso # (Auto) 0.1 (0.0-0.2) th/mm3 WBC Differential . Differential Comment . PT 10.0 (9.8-11.6) sec INR 1.0 Ratio Sodium 140 (136-145) meq/L Potassium 3.7 (3.5-5.1) meq/L Chloride 104 (98-107) meq/L Carbon Dioxide 27.3 (21.0-32.0) meq/L Anion Gap 9 (5-15) meq/L BUN 21 H (7-18) mg/dL Creatinine 0.72 (0.50-1.00) mg/dL Estimated GFR 81 L (>89) mL/min Random Glucose 100 (74-106) mg/dL Calcium 8.7 (8.5-10.1) mg/dL Total Bilirubin 0.6 (0.2-1.0) mg/dL AST 16 (15-37) U/L ALT 22 (10-53) U/L Alkaline Phosphatase 73 (45-117) U/L Total Protein 7.0 (6.4-8.2) g/dL Albumin 3.5 (3.4-5.0) g/dL Imaging Data Radiologist's impression: Venous Doppler Study 08/27/18 00:00 CONCLUSION: No DVT. Chest X-Ray 08/27/18 04:43 CONCLUSION: No acute cardiopulmonary process. Head CTA 08/27/18 04:43 CONCLUSION: Negative CTA. Neck CTA 08/27/18 04:43 CONCLUSION: Mild calcified plaque in the left carotid bulb. No significant stenosis is present within either internal carotid artery. Discharge Plan Discharge Disposition Patient Disposition: 30 Still Patient Discharge Condition Condition: Fair Discharge Order Discharge Orders: Discharge Order (Routine); Ordered 08/27/18 Ordered By: Chidi Durham Physicians Team ED Provider: Grant Ann Primary Care Provider: Deion Dela Cruz Attending Provider: Vel Klein Other Providers: Ryley Ayala Status ED Status: Left Department Discharge Information Discharge Date/Time: 08/27/18 10:21
--- NOTE | 2018-08-27 05:09 | US ---
EXAM DATE: 08/27/2018 12:00 AM EDT AGE/SEX: 67 years / Female INDICATIONS: Left calf cramping. CLINICAL DATA: This is the patient's initial encounter. Patient reports that signs and symptoms have been present for 1 day and indicates a pain score of 2/10. MEDICAL/SURGICAL HISTORY: . SVT. . Breast surgery. Knee surgery. Ablation treatment for SVT. COMPARISON: No prior exams available for comparison. TECHNIQUE: Venous ultrasound of both lower extremities was performed from the inguinal ligament to t he proximal calf. Real-time, color Doppler and spectral tracing, compression and augmentation techni ques were used. FINDINGS: Normal compression of the deep venous system from the inguinal region to the proximal calf . No echogenic clot is seen. Normal response of the venous system to augmentation and respiration. CONCLUSION: No DVT. Electronically signed by: Humberto Topete MD 08/27/2018 5:08 AM EDT
[2018-08-27 05:13] LABS: Baso # (Auto) 0.1 th/mm3 (0.0-0.2); Baso % (Auto) 0.6 % (0.0-2.0); Eos # (Auto) 0.2 th/mm3 (0.0-0.4); Eos % (Auto) 1.7 % (0.0-4.0); Hematocrit 42.1 % (35.0-46.0); Hemoglobin 14.2 gm/dL (11.6-15.3); Lymph % (Auto) 33.4 % (9.0-44.0); Mean Corpuscular HGB Conc 33.6 % (32.0-36.0); Mean Corpuscular Hemoglobin 30.9 pg (27.0-34.0); Mean Corpuscular Volume 91.9 fL (80.0-100.0); Mean Platelet Volume 8.4 fL (7.0-11.0); Mono # (Auto) 0.5 th/mm3 (0.0-0.9); Mono % (Auto) 5.8 % (0.0-8.0); Neut # (Auto) 5.2 th/mm3 (1.8-7.7); Neut % (Auto) 58.5 % (16.0-70.0); Platelet Count 238 th/mm3 (150-450); Red Blood Count 4.59 mil/mm3 (4.00-5.30); Red Cell Distribution Width 12.2 % (11.6-17.2); White Blood Count 9.1 th/mm3 (4.0-11.0)
[2018-08-27 05:21] LABS: Chloride 104 meq/L (98-107); Potassium 3.7 meq/L (3.5-5.1); Sodium 140 meq/L (136-145)
[2018-08-27 05:24] LABS: Calcium 8.7 mg/dL (8.5-10.1)
[2018-08-27 05:25] LABS: Albumin 3.5 g/dL (3.4-5.0); Anion Gap 9 meq/L (5-15); Blood Urea Nitrogen 21 mg/dL (7-18); Carbon Dioxide 27.3 meq/L (21.0-32.0); Glucose,Random 100 mg/dL (74-106)
[2018-08-27 05:28] LABS: Alanine Aminotransferase 22 U/L (10-53); Aspartate Aminotransferase 16 U/L (15-37); Glomerular Filtration Rate 81 mL/min (>89)
[2018-08-27 05:31] LABS: Alkaline Phosphatase 73 U/L (45-117)
--- NOTE | 2018-08-27 05:47 | XR ---
EXAM DATE: 08/27/2018 4:43 AM EDT AGE/SEX: 67 years / Female INDICATIONS: . Embolus. CLINICAL DATA: This is the patient's initial encounter. Patient reports that signs and symptoms have been present for 1 day and indicates a pain score of 0/10. MEDICAL/SURGICAL HISTORY: . SVT. . Breast surgery. Knee surgery. Ablation treatment for SVT. COMPARISON: No prior exams available for comparison. FINDINGS: The heart size is normal. The lungs are clear. No effusion is seen. There is a dextroscoliosis of the thoracic spine. CONCLUSION: No acute cardiopulmonary process. Electronically signed by: Humberto Topete MD 08/27/2018 5:46 AM EDT
[2018-08-27 06:20] VITALS: RESP 16
--- NOTE | 2018-08-27 06:41 | CT ---
EXAM DATE: 08/27/2018 4:49 AM EDT AGE/SEX: 67 years / Female INDICATIONS: Sudden onset Cephalgia following recent cardiac ablation. CLINICAL DATA: This is the patient's initial encounter. Patient reports that signs and symptoms have been present for 3 days and indicates a pain score of 9/10. MEDICAL/SURGICAL HISTORY: None. . Cardiac Ablation. RADIATION DOSE: 42.20 CTDI (mGy) COMPARISON: No prior exams available for comparison. TECHNIQUE: Volumetric scanning was performed using a multi-row detector CT scanner during bolus infu marilyn of 73 ml Omnipaque 350 (iohexol) nonionic water-soluble contrast as a cumulative dose for multi ple exams. The data was post processed with a variety of visualization algorithms including full vo lume maximum intensity projection, multi-planar sliding thin slab reformation, curved planar reformat ion, and surface rendering techniques. Using automated exposure control and adjustment of the mA and /or kV according to patient size, radiation dose was kept as low as reasonably achievable to obtain o ptimal diagnostic quality images. DICOM format image data is available electronically for review and comparison. FINDINGS: There is excellent visualization of the major intracranial arteries out to the second-order branch ve ssels. There is no evidence for aneurysm, vessel truncation or stenosis, and no evidence for vascula r malformation. CONCLUSION: Negative CTA. Electronically signed by: Humberto Topete MD 08/27/2018 6:40 AM EDT
--- NOTE | 2018-08-27 07:15 | CT ---
EXAM DATE: 08/27/2018 4:49 AM EDT AGE/SEX: 67 years / Female INDICATIONS: Sudden onset cephalgia. Recent cardiac ablation. CLINICAL DATA: This is the patient's initial encounter. Patient reports that signs and symptoms have been present for 1 day and indicates a pain score of 9/10. MEDICAL/SURGICAL HISTORY: None. . Cardiac ablation. RADIATION DOSE: 42.20 CTDI (mGy) COMPARISON: No prior exams available for comparison. TECHNIQUE: Volumetric scanning was performed using a multirow detector CT scanner during bolus infus ion of 73 ml Omnipaque 350 (iohexol) nonionic water-soluble contrast as a cumulative dose for multip le exams. The data was postprocessed with a variety of visualization algorithms including full-volu me maximum intensity projection, multiplanar sliding thin-slab reformation, curved-planar reformation , and surface-rendering techniques. Using automated exposure control and adjustment of the mA and/or kV according to patient size, radiation dose was kept as low as reasonably achievable to obtain opti mal diagnostic quality images. DICOM format image data is available electronically for review and co mparison. Percent stenosis is calculated using the diameter of the stenotic region over the diameter of the nor mal distal internal carotid artery. FINDINGS: Aortic Arch: There is a three-vessel origin of the great vessels from the aorta. No evidence of ost ial narrowing there is mild atherosclerotic plaque in the inner arch. Right Carotid: The common carotid artery demonstrates no significant abnormality. The carotid bulb h as a normal configuration without ulceration or narrowing. The internal carotid artery lumen is smoo th without stenosis. The external carotid artery demonstrates no significant abnormality. Left Carotid: The common carotid artery demonstrates no significant abnormality. There is mild calci fied plaque in the carotid bulb. The internal carotid artery lumen is smooth without stenosis. The external carotid artery demonstrates no significant abnormality.. Vertebrals: The vertebral arteries have a symmetric diameter. No stenotic lesions are seen. The visualized surrounding structures demonstrate no acute abnormality. CONCLUSION: Mild calcified plaque in the left carotid bulb. No significant stenosis is present within either inte rnal carotid artery. Electronically signed by: Humberto Sawyer MD 08/27/2018 7:14 AM EDT
--- NOTE | 2018-08-27 07:26 | P.HP ---
History of Present Illness Service: [facility] Primary Care Physician: Deion Dela Cruz Chief Complaint: h/a, left calf pain-sudden onset History of Present Illness: Very pleasant 67-year-old relatively healthy female who is approximately 9 days status post ablation for AVNRT with Dr. Mims presents with a couple of complaints to the ER. She noted that for 2 days in a row she developed headaches at the end of the day and she rarely if ever gets headaches. She said the headaches would resolve with rest. She also noted that yesterday she had sudden onset of left proximal posterior calf pain. There was no trauma. The calf pain is still ongoing. She became somewhat worried and started consulting the Internet for possible etiologies of her symptomatology and came for evaluation for possible "blood clot". Here she has no focal neurologic deficits and her headache has resolved. She still has left calf pain. Ultrasound of the area fails to demonstrate a DVT however concern for possible mural thrombus was entertained. ER physician contacted patient chemical mixer Dr. Ryley Ayala who says it is possible and a JACQUI is to be considered for her. Patient is agreeable to such. He is asymptomatic presently with the exception of the left calf pain. - Diagnosis (1) Cephalgia (2) Anxiety Review of Systems Constitutional: Denies anorexia, Denies body ache(s), Denies chills, Denies daytime sleepiness, Denies excessive sweating, Denies fatigue, Denies fever(s), Denies headache(s), Denies increased appetite, Denies lack of energy, Denies malaise, Denies night sweats, Denies weakness, Denies weight gain, Denies weight loss, Denies other Eyes: Denies blind spots, Denies blurry vision, Denies bulging eyes, Denies change in vision, Denies double vision, Denies discharge, Denies dry eyes, Denies floaters, Denies irritation, Denies itchy eyes, Denies loss of vision, Denies pain, Denies requires corrective lenses, Denies sensitivity to light, Denies other Cardiovascular: Reports rapid, pounding, or irregular heartbeat, Denies chest pain, Denies chest pain at rest, Denies chest pain with activity, Denies excessive sweating, Denies fainting, Denies fast heart rate, Denies foot swelling, Denies generalized swelling, Denies irregular heart rhythm, Denies leg pain with activity, Denies leg sores, Denies leg swelling, Denies lightheadedness, Denies radiating jaw, neck or arm pain, Denies shortness of breath, Denies shortness of breath with activity, Denies shortness of breath when lying down, Denies shortness of breath causing sudden awakening, Denies slow heart rate, Denies other Respiratory: Denies change in phlegm color, Denies chest congestion, Denies cough, Denies coughing up blood, Denies excessive phlegm production, Denies pain on inspiration, Denies pain with cough, Denies shortness of breath, Denies shortness of breath with activity, Denies snoring, Denies stridor, Denies wheezing, Denies other Gastrointestinal: Denies abdominal pain, Denies belching, Denies black, tarry stools, Denies bloating, Denies bright, red blood in stools, Denies change in bowel habits, Denies constant urge to pass stool, Denies change in stools, Denies coffee ground vomit, Denies constipation, Denies cramping, Denies difficulty swallowing, Denies excessive passing of gas, Denies feeling full early, Denies heartburn, Denies incontinent of stools, Denies loose stools, Denies nausea, Denies pain with swallowing, Denies vomiting, Denies vomiting blood, Denies other Musculoskeletal: Reports muscle cramps Neurologic: Reports headache(s), Denies abnormal hearing, Denies abnormal movements, Denies abnormal speech, Denies abnormal walking, Denies behavioral changes, Denies burning sensations, Denies confusion, Denies dizziness, Denies fainting, Denies frequent falls, Denies lack of coordination, Denies localized weakness, Denies loss of vision, Denies memory loss, Denies numbness, Denies other visual disturbances, Denies radiating pain, Denies restless legs, Denies convulsions, Denies seizure-like activity, Denies sensory deficit, Denies tingling, Denies tingling/numbness/burning sensations, Denies tremor(s), Denies unsteadiness, Denies weakness, Denies other Psychiatric: Reports anxiety PMFSH - History History Provided By: Patient - Medical History Medical History: Medical History (Last Updated 08/27/18 @ 07:22 by Chidi Durham MD, PhD) Anxiety Patient denies medical problems - Surgical History Surgical History: Surgical History (Last Updated 08/27/18 @ 07:21 by Chidi Durham MD, PhD) Hx of prior ablation treatment Hx of breast surgery Hx of knee surgery - Family History Family History: Family History (Last Updated 08/27/18 @ 07:23 by Chidi Durham MD, PhD) Sister Leukemia Father CVA (cerebral vascular accident) Myocardial infarct Mother CVA (cerebral vascular accident) - Social History I have reviewed the patient's Social History: Yes - Tobacco History Second Hand Smoke Exposure: No Tobacco Use In Past 30 Days: No Smoking Status: Never smoker - Alcohol History How Often Do You Have a Drink Containing Alcohol: Never - Substance Use History Substance History: No History of Abuse - Travel History Recent Travel in the [place] Within the Last 8 Weeks: No Recent Travel Out of the Country Within the Last 8 Weeks: No - Immunization History Tetanus Immunization: <5 Years Hx Influenza Vaccine This Season: No Medications and Allergies Allergies Allergy/AdvReac Type Severity Reaction Status Date / Time fexofenadine Allergy Intermediate Rash Verified 08/27/18 01:43 Home Medications Medication Instructions Recorded Confirmed Type aspirin [Aspir-81] 81 mg PO DAILY 08/27/18 08/27/18 History Exam Vital signs: Vital Signs 08/27/18 01:30 08/27/18 06:19 Temperature 98.2 F Pulse Rate 67 65 Respiratory Rate 18 16 Blood Pressure 139/76 113/70 Pulse Oximetry 97 100 Intake & Output 08/26/18 08/27/18 08/27/18 18:59 06:59 18:59 Weight 77 kg Narrative: GENERAL: Obese female sitting in chair with left leg elevated on the exam bed. No acute distress. Somewhat anxious. SKIN: Warm and dry. Few spider veins in lower extremities. HEAD: Atraumatic. Normocephalic. EYES: Pupils equal and round. No scleral icterus. No injection or drainage. ENT: No nasal bleeding or discharge. Mucous membranes pink and moist. NECK: Trachea midline. No JVD. CARDIOVASCULAR: Regular rate and rhythm. No significant murmur. RESPIRATORY: No accessory muscle use. Clear to auscultation. Breath sounds equal bilaterally. GASTROINTESTINAL: Abdomen soft, non-tender, nondistended. Hepatic and splenic margins not palpable. MUSCULOSKELETAL: Extremities without clubbing, cyanosis, or edema. No obvious deformities. NEUROLOGICAL: Awake and alert. No obvious cranial nerve deficits. Motor grossly within normal limits. Five out of 5 muscle strength in the arms and legs. Normal speech. No focal deficits on exam. PSYCHIATRIC: Appropriate mood and affect; insight and judgment normal. Results - Labs CBC & Chem 7: 08/27/18 05:00 08/27/18 05:00 Labs: Laboratory Results - last 24 hr 08/27/18 08/27/18 08/27/18 05:00 05:00 05:00 CBC w Diff Auto diff final WBC 9.1 RBC 4.59 Hgb 14.2 Hct 42.1 MCV 91.9 MCH 30.9 MCHC 33.6 RDW 12.2 Plt Count 238 MPV 8.4 Neut % (Auto) 58.5 Lymph % (Auto) 33.4 [place] % (Auto) 5.8 Eos % (Auto) 1.7 Baso % (Auto) 0.6 Neut # (Auto) 5.2 Lymph # (Auto) 3.0 [place] # (Auto) 0.5 Eos # (Auto) 0.2 Baso # (Auto) 0.1 WBC Differential . Differential Comment . PT 10.0 INR 1.0 Sodium 140 Potassium 3.7 Chloride 104 Carbon Dioxide 27.3 Anion Gap 9 BUN 21 H Creatinine 0.72 Estimated GFR 81 L Random Glucose 100 Calcium 8.7 Total Bilirubin 0.6 AST 16 ALT 22 Alkaline Phosphatase 73 Total Protein 7.0 Albumin 3.5 - Imaging Impressions Venous Doppler Study 08/27/18 00:00 CONCLUSION: No DVT. Chest X-Ray 08/27/18 04:43 CONCLUSION: No acute cardiopulmonary process. Head CTA 08/27/18 04:43 CONCLUSION: Negative CTA. Neck CTA 08/27/18 04:43 CONCLUSION: Mild calcified plaque in the left carotid bulb. No significant stenosis is present within either internal carotid artery. Caprini VTE Risk Assessment Caprini VTE Risk Assessment: Moderate/High Risk (score >= 2) Caprini Risk Assessment Model: Point Value = 1 Point Value = 2 Point Value = 3 Point Value = 5 Age 41-60 Minor surgery BMI > 25 kg/m2 Swollen legs Varicose veins or History of unexplained or recurrent spontaneous Oral contraceptives or hormone replacement Sepsis (< 1 month) Serious lung disease, including pneumonia (< 1 month) Abnormal pulmonary function Acute myocardial infarction Congestive heart failure (< 1 month) History of inflammatory bowel disease Medical patient at bed rest Age 61-74 Arthroscopic surgery Major open surgery (> 45 min) Laparoscopic surgery (> 45 min) Malignancy Confined to bed (> 72 hours) Immobilizing plaster cast Central venous access Age >= 75 History of VTE Family history of VTE Factor V Leiden Prothrombin [id number] Lupus anticoagulant Anticardiolipin antibodies Elevated serum homocysteine Heparin-induced thrombocytopenia Other congenital or acquired thrombophilia Stroke (< 1 month) Elective arthroplasty Hip, pelvis, or leg fracture Acute spinal cord injury (< 1 month) Prophylaxis Regimen: Total Risk Factor Score Risk Level Prophylaxis Regimen 0-1 Low Early ambulation 2 Moderate Order ONE of the following: *Sequential Compression Device (SCD) *Heparin 5000 units SQ BID 3-4 Higher Order ONE of the following medications: *Heparin 5000 units SQ TID *Enoxaparin/Lovenox 40 mg SQ daily (WT < 150 kg, CrCl > 30 mL/min) *Enoxaparin/Lovenox 30 mg SQ daily (WT < 150 kg, CrCl > 10-29 mL/min) *Enoxaparin/Lovenox 30 mg SQ BID (WT < 150 kg, CrCl > 30 mL/min) AND/OR *Sequential Compression Device (SCD) 5 or more Highest Order ONE of the following medications: *Heparin 5000 units SQ TID (Preferred with Epidurals) *Enoxaparin/Lovenox 40 mg SQ daily (WT < 150 kg, CrCl > 30 mL/min) *Enoxaparin/Lovenox 30 mg SQ daily (WT < 150 kg, CrCl > 10-29 mL/min) *Enoxaparin/Lovenox 30 mg SQ BID (WT < 150 kg, CrCl > 30 mL/min) AND *Sequential Compression Device (SCD) Assessment and Plan - Assessment (1) Cephalgia Code(s): R51 - Headache Status: Acute Plan: No focal deficits on exam. Given rare occurrence of any headache and the patient and recent onset of headaches for 2 days in a row in addition to the acute left calf pain it was thought that she could possibly although unlikely have mural thrombus associated with the recent transseptal ablation procedure. JACQUI is to be entertained and she will be transferred to [facility] for further evaluation by chemical mixer. (2) Anxiety Code(s): F41.9 - Anxiety disorder, unspecified Status: Acute Plan: Will use Ativan as needed. She has tolerated this well as outpatient. - Plan Code Status: full Discussed Condition With: Patient and ER provider. Plan to discuss with Dr. Klein later this morning. ER physician discussed with patient's chemical mixer, Dr. Ryley Ayaal. (1) Cephalgia Qualifiers: Headache chronicity pattern: acute headache
[2018-08-27] MEDS ORDERED: LORazepam 0.5 MG Tablet PO PRN (07:56)
[2018-08-27 10:17] VITALS: BP 135/77; PULSE 72; O2SAT 97
--- NOTE | 2018-08-30 15:21 | MH ---
cc: Chidi Durham MD, PhD DATE OF ADMISSION: 08/27/2018 ADDENDUM: I spoke with Dr. Ryley Ayala, who is the patient's handbag parts cutter, regarding her symptoms and studies that have been done regarding her headache and calf pain. Given that she had no focal neurologic deficits on my exam, and no evidence of cyanosis or coolness in the lower extremity as well as good pulses distally, Dr. Ayala thought it would be very unlikely not to have any such evidence for any association with possible mural thrombus. He advised that he would not be doing a JACQUI based on these symptoms and the negative studies done in the ER. He reported that he talked to the ER doctor earlier and had not had a chance to review the studies initially, but had since reviewed them. He recommended discharge with symptomatic therapy for the headache and the calf pain. He, of course, is willing to see her as an outpatient. He had seen her before, and is willing to offer assistance if needed regarding any other questions of this nature. I spoke with the patient regarding it. She is agreeable to discharge with outpatient care. I did tell her if she developed any chest pain or shortness of breath, report immediately to the ER. She was agreeable. I advised her to see her primary care physician this week and Dr. Ayala in the next 1 to 2 weeks. I spoke with her nurse about this and gave discharge orders, as well as followup orders. Chidi Durham MD, PhD WJD/pooja/michaela , 09:44 AM , 09:51 AM GIANNA
== END 2018-08-27 10:20 | disposition home or self-care (01) ==
LOC: PHEDA 01:13 → PHED 01:13 → PHEDA 10:21
PROVIDERS: ADMIT Hospitalist; ATTEND Hospitalist
DX: E66.9 Obesity, unspecified; R51 Headache; I47.1 Supraventricular tachycardia; M79.662 Pain in left lower leg; F41.9 Anxiety disorder, unspecified

== ENCOUNTER 2018-11-27 09:32 | Observation (INO) ==
--- NOTE | 2018-11-27 10:08 | ED ---
HPI General Chief Complaint: Chest Pain Stated Complaint: Chest Tightness/HBP Time Seen by Provider: 11/27/18 10:06 Source: patient Mode of arrival: ambulatory Limitations: no limitations History of Present Illness HPI narrative: 67-year-old female patient with history of SVT status post previous ablation presents to the ER today because she states that she had eaten Sinhala food last night, and when she got home she started having some palpitations, chest discomfort, felt like her blood pressure was up. She had stated that her chest discomfort was a 5 out of 10 initially on evaluation. However, she states is not true pain. She denies any fevers, shortness of breath, abdominal pain, nausea, or other symptoms. Modifying Factors: None Associated Signs & Symptoms: Palpitations, chest discomfort, elevated blood pressure Risk Factors: History of SVTs, anxiety Related Data Home Medications Medication Instructions Recorded Confirmed lorazepam 0.5 mg PO DAILY PRN 11/27/18 11/27/18 Allergies Allergy/AdvReac Type Severity Reaction Status Date / Time fexofenadine Allergy Intermediate Rash Verified 11/27/18 09:54 Review of Systems ROS: all other systems reviewed are negative PMFSH Medical History Medical History Anxiety (Acute) Patient denies medical problems (Acute) Surgical History Surgical History Hx of breast surgery (Acute) Hx of knee surgery (Acute) Hx of prior ablation treatment (Acute) Family History Family History Sister Leukemia Father CVA (cerebral vascular accident) Myocardial infarct Mother CVA (cerebral vascular accident) Social History Social History Substance History: No History of Abuse Second Hand Smoke Exposure: No Smoking Status: Never smoker How Often Do You Have a Drink Containing Alcohol: Never Recent Travel in [facility] within the Last 8 Weeks: No Recent Out of Country Travel within the Last 8 Weeks: No Immunization History Tetanus Immunization: Unsure Exam Narrative Exam Narrative: GENERAL: Well-developed elderly female patient currently in mild distress. Awake and oriented x3. SKIN: Focused skin assessment warm/dry. HEAD: Atraumatic. Normocephalic. EYES: Pupils equal and round. No scleral icterus. No injection or drainage. ENT: No nasal bleeding or discharge. Mucous membranes pink and moist. NECK: Trachea midline. No JVD. Supple. CARDIOVASCULAR: Regular rate and rhythm. No murmur appreciated. RESPIRATORY: No accessory muscle use. Clear to auscultation. Breath sounds equal bilaterally. GASTROINTESTINAL: Abdomen soft, non-tender, nondistended. Hepatic and splenic margins not palpable. MUSCULOSKELETAL: No obvious deformities. No clubbing. No cyanosis. No edema. NEUROLOGICAL: Awake and alert. No obvious cranial nerve deficits. Motor grossly within normal limits. Normal speech. PSYCHIATRIC: Appropriate mood and affect; insight and judgment normal. Course Initial Documented Vital Signs Temperature 98.4 F 11/27/18 09:35 Pulse Rate 87 11/27/18 09:35 Respiratory Rate 20 11/27/18 09:35 Blood Pressure 153/77 H 11/27/18 09:35 Pulse Oximetry 98 11/27/18 09:35 Last Documented Vital Signs Temperature 98.4 F 11/27/18 09:35 Pulse Rate 75 11/27/18 10:06 Respiratory Rate 18 11/27/18 10:06 Blood Pressure 137/70 11/27/18 10:06 Pulse Oximetry 96 11/27/18 10:06 Medical Decision Making MDM Narrative Medical decision making narrative: Lab work is fairly unremarkable. EKG did not show acute ST elevations or depressions although there is some atypical ST nonspecific changes in the inferior leads. Cardiac enzymes are negative. At this point, I have had a discussion with the patient who is fairly worried about the chest discomfort as well as the back discomfort and my plan would be to admit her as an observation for chest pain center. Case is discussed with Dr. Gee for admission. Medical Screen Exam Complete: Yes Emergency Medical Condition: Yes Differential Diagnosis Differential Diagnosis: ACS versus dysrhythmias versus anxiety attack Lab Data Lab results reviewed: Yes I reviewed the patient's lab results. Result diagrams: 11/27/18 10:16 11/27/18 10:16 Lab Results 11/27/18 11/27/18 Range/Units 10:16 10:16 CBC w Diff Auto diff final WBC 5.9 (4.0-11.0) th/mm3 RBC 4.45 (4.00-5.30) mil/mm3 Hgb 13.3 (11.6-15.3) gm/dL Hct 40.4 (35.0-46.0) % MCV 90.9 (80.0-100.0) fL MCH 30.0 (27.0-34.0) pg MCHC 33.0 (32.0-36.0) % RDW 12.4 (11.6-17.2) % Plt Count 225 (150-450) th/mm3 MPV 8.1 (7.0-11.0) fL Neut % (Auto) 59.0 (16.0-70.0) % Lymph % (Auto) 32.3 (9.0-44.0) % [place] % (Auto) 6.4 (0.0-8.0) % Eos % (Auto) 1.7 (0.0-4.0) % Baso % (Auto) 0.6 (0.0-2.0) % Neut # (Auto) 3.5 (1.8-7.7) th/mm3 Lymph # (Auto) 1.9 (1.0-4.8) th/mm3 [place] # (Auto) 0.4 (0.0-0.9) th/mm3 Eos # (Auto) 0.1 (0.0-0.4) th/mm3 Baso # (Auto) 0.0 (0.0-0.2) th/mm3 WBC Differential . Differential Comment . Sodium 143 (136-145) meq/L Potassium 3.7 (3.5-5.1) meq/L Chloride 108 H (98-107) meq/L Carbon Dioxide 27.2 (21.0-32.0) meq/L Anion Gap 8 (5-15) meq/L BUN 19 H (7-18) mg/dL Creatinine 0.73 (0.50-1.00) mg/dL Estimated GFR 80 L (>89) mL/min Random Glucose 94 (74-106) mg/dL Calcium 8.6 (8.5-10.1) mg/dL Total Bilirubin 0.6 (0.2-1.0) mg/dL AST 16 (15-37) U/L ALT 26 (10-53) U/L Alkaline Phosphatase 77 (45-117) U/L Troponin I Less than 0.02 L (0.02-0.05) ng/mL Total Protein 6.6 (6.4-8.2) g/dL Albumin 3.2 L (3.4-5.0) g/dL Imaging Data Attestation: I personally reviewed and interpreted this imaging study as follows : Radiologist's impression: Chest X-Ray 11/27/18 10:06 CONCLUSION: Stable chest without evidence of acute cardiopulmonary process. ECG Data Attestation: I personally reviewed and interpreted this ECG as follows: Interpretation: EKG shows NSR, no ST elevation or depression, and no arrhythmias. No significant T-wave inversions. Discharge Plan Discharge Disposition Patient Disposition: ED Admit(ED Internal Use Only) Discharge Condition Condition: Stable Discharge Order Discharge Orders: ED Use Only Admit Order (Routine); Ordered 11/27/18 Ordered By: Ishmael Fuentes Discharge Details Anticipated Discharge Date: 11/27/18 Diagnosis: Atypical chest pain Physicians Team ED Provider: Ishmael Fuentes Primary Care Provider: Deion Dela Cruz Rxs /Orders / Referrals /Forms Prescriptions: No Action lorazepam 0.5 mg Tablet 0.5 mg PO DAILY PRN (Reason: Anxiety) RF: 0 Discharge Instructions Patient Printed Instructions: Chest Pain (ED) Status ED Status: With Doctor
[2018-11-27 10:28] LABS: Baso % (Auto) 0.6 % (0.0-2.0); Eos # (Auto) 0.1 th/mm3 (0.0-0.4); Eos % (Auto) 1.7 % (0.0-4.0); Hematocrit 40.4 % (35.0-46.0); Hemoglobin 13.3 gm/dL (11.6-15.3); Lymph # (Auto) 1.9 th/mm3 (1.0-4.8); Lymph % (Auto) 32.3 % (9.0-44.0); Mean Corpuscular Volume 90.9 fL (80.0-100.0); Mean Platelet Volume 8.1 fL (7.0-11.0); Mono # (Auto) 0.4 th/mm3 (0.0-0.9); Mono % (Auto) 6.4 % (0.0-8.0); Neut # (Auto) 3.5 th/mm3 (1.8-7.7); Platelet Count 225 th/mm3 (150-450); Red Blood Count 4.45 mil/mm3 (4.00-5.30); Red Cell Distribution Width 12.4 % (11.6-17.2); White Blood Count 5.9 th/mm3 (4.0-11.0)
[2018-11-27 10:36] LABS: Chloride 108 meq/L (98-107); Potassium 3.7 meq/L (3.5-5.1); Sodium 143 meq/L (136-145)
[2018-11-27 10:40] LABS: Albumin 3.2 g/dL (3.4-5.0); Anion Gap 8 meq/L (5-15); Calcium 8.6 mg/dL (8.5-10.1); Carbon Dioxide 27.2 meq/L (21.0-32.0); Glucose,Random 94 mg/dL (74-106)
[2018-11-27 10:41] LABS: Blood Urea Nitrogen 19 mg/dL (7-18)
[2018-11-27 10:43] LABS: Alanine Aminotransferase 26 U/L (10-53)
[2018-11-27 10:44] LABS: Aspartate Aminotransferase 16 U/L (15-37); Glomerular Filtration Rate 80 mL/min (>89)
[2018-11-27 10:45] LABS: Total Protein 6.6 g/dL (6.4-8.2)
[2018-11-27 10:46] LABS: Alkaline Phosphatase 77 U/L (45-117)
--- NOTE | 2018-11-27 10:46 | XR ---
EXAM DATE: 11/27/2018 10:44 AM EST AGE/SEX: 67 years / Female INDICATIONS: Chest pain. CLINICAL DATA: This is the patient's initial encounter. Patient reports that signs and symptoms have been present for 1 day and indicates a pain score of 7/10. MEDICAL/SURGICAL HISTORY: . SVT. . . Breast surgery. Knee surgery. Ablation treatment for SVT . COMPARISON: [facility], CHEST 2V PA&LAT, 08/27/2018. . FINDINGS: A single AP view of the chest demonstrates the lungs to be symmetrically aerated without evidence of mass, infiltrate or effusion. The cardiomediastinal contours are unremarkable. Osseous structures a re intact. CONCLUSION: Stable chest without evidence of acute cardiopulmonary process. Electronically signed by: Davis Barrera MD Board Certified Radiologist 11/27/2018 10:44 AM EST
[2018-11-27 13:27] LABS: Creatine Kinase 72 U/L (26-192)
--- NOTE | 2018-11-27 14:57 | P.HP ---
History of Present Illness Primary Care Physician: Deion Dela Cruz Chief Complaint: Back pain, neck pain and chest discomfort History of Present Illness: This is a 67-year-old medical history of SVT status post ablation who presented to the ED with complaints of back and neck discomfort and mild chest discomfort. Patient states that on Tuesday night her and her went out for Irish food, states that afterwards she felt thirsty and woke up irritable with elevated blood pressure with systolic in the 150s. She has recently underwent a ablation by Dr. beckham a couple months ago and was given lorazepam at that time which she took on Tuesday morning for her irritability. She states that this did relieve some of her symptoms although she developed some back discomfort at that radiated up her neck and felt some mild chest discomfort but denies actual chest pain. Denies any nausea, vomiting, shortness of breath or diaphoresis. She states she last saw Dr. Ayala, 2 months ago. Denies any recent fevers, chills, headache, abdominal pain, nausea , vomiting, diarrhea or dysuria. Patient states that she underwent a stress test around June which was reportedly unremarkable. - Diagnosis (1) Atypical chest pain Review of Systems All other systems reviewed negative except as stated in HPI PMFSH - History History Provided By: Patient - Medical History Medical History: Medical History (Last Reviewed 11/27/18 @ 14:53 by Annie Flores) Anxiety Patient denies medical problems - Surgical History Surgical History: Surgical History (Last Reviewed 11/27/18 @ 14:53 by Annie Flores) Hx of breast surgery Hx of knee surgery Hx of prior ablation treatment - Family History Family History: Family History (Last Reviewed 11/27/18 @ 14:53 by Annie Flores) Sister Leukemia Father CVA (cerebral vascular accident) Myocardial infarct Mother CVA (cerebral vascular accident) - Social History I have reviewed the patient's Social History: Yes - Tobacco History Second Hand Smoke Exposure: No Smoking Status: Never smoker - Alcohol History How Often Do You Have a Drink Containing Alcohol: Never - Substance Use History Substance History: No History of Abuse - Travel History Recent Travel in the [place] Within the Last 8 Weeks: No Recent Travel Out of the Country Within the Last 8 Weeks: No - Immunization History Tetanus Immunization: Unsure Medications and Allergies Active Medications: Active Medications Sodium Chloride (Ns Flush) 2 ml IV.FLUSH BID ТАТЬЯНА Sodium Chloride (Ns Flush) 2 ml IV.FLUSH PRN PRN PRN Reason: FLUSH AFTER USING IV ACCESS Allergies Allergy/AdvReac Type Severity Reaction Status Date / Time fexofenadine Allergy Intermediate Rash Verified 11/27/18 09:54 Home Medications Medication Instructions Recorded Confirmed Type lorazepam 0.5 mg PO DAILY PRN 11/27/18 11/27/18 History Exam Vital signs: Vital Signs 11/27/18 09:35 11/27/18 10:06 11/27/18 11:56 Temperature 98.4 F Pulse Rate 87 75 71 Respiratory Rate 20 18 18 Blood Pressure 153/77 H 137/70 134/74 Pulse Oximetry 98 96 97 11/27/18 12:52 Temperature Pulse Rate 79 Respiratory Rate 18 Blood Pressure 118/75 Pulse Oximetry 99 Intake & Output 11/26/18 11/27/18 11/27/18 18:59 06:59 18:59 Weight 81 kg Narrative: GENERAL: Well-developed, well-nourished patient in [facility]. SKIN: Warm and dry. No rash. HEAD: Normocephalic. Atraumatic. EYES: Pupils equal and round. No scleral icterus. No injection or drainage. ENT: No nasal bleeding or discharge. Mucous membranes pink and moist. NECK: Supple. Trachea midline. CARDIOVASCULAR: Regular rate and rhythm. S1, S2 noted. No murmur appreciated. No chest pain on palpation. RESPIRATORY: No accessory muscle use. Clear to auscultation. Breath sounds equal bilaterally. GASTROINTESTINAL: Abdomen soft, non-tender, nondistended. Normoactive bowel sounds x4. MUSCULOSKELETAL: No obvious deformities. Extremities without clubbing, cyanosis , or edema. NEUROLOGICAL: Awake and alert. No obvious cranial nerve deficits. Motor grossly within normal limits. 5/5 muscle strength in bilateral upper and lower extremities. Normal speech. PSYCHIATRIC: Appropriate mood and affect; insight and judgment normal. Results - Labs CBC & Chem 7: 11/27/18 10:16 11/27/18 10:16 Labs: Laboratory Results - last 24 hr 11/27/18 11/27/18 11/27/18 10:16 10:16 12:58 CBC w Diff Auto diff final WBC 5.9 RBC 4.45 Hgb 13.3 Hct 40.4 MCV 90.9 MCH 30.0 MCHC 33.0 RDW 12.4 Plt Count 225 MPV 8.1 Neut % (Auto) 59.0 Lymph % (Auto) 32.3 [place] % (Auto) 6.4 Eos % (Auto) 1.7 Baso % (Auto) 0.6 Neut # (Auto) 3.5 Lymph # (Auto) 1.9 [place] # (Auto) 0.4 Eos # (Auto) 0.1 Baso # (Auto) 0.0 WBC Differential . Differential Comment . Sodium 143 Potassium 3.7 Chloride 108 H Carbon Dioxide 27.2 Anion Gap 8 BUN 19 H Creatinine 0.73 Estimated GFR 80 L Random Glucose 94 Calcium 8.6 Total Bilirubin 0.6 AST 16 ALT 26 Alkaline Phosphatase 77 Total Creatine Kinase 72 Troponin I Less than 0.02 L Less than 0.02 L Total Protein 6.6 Albumin 3.2 L - Imaging Impressions Chest X-Ray 11/27/18 10:06 CONCLUSION: Stable chest without evidence of acute cardiopulmonary process. Caprini VTE Risk Assessment Caprini VTE Risk Assessment: Moderate/High Risk (score >= 2) Caprini Risk Assessment Model: Point Value = 1 Point Value = 2 Point Value = 3 Point Value = 5 Age 41-60 Minor surgery BMI > 25 kg/m2 Swollen legs Varicose veins or History of unexplained or recurrent spontaneous Oral contraceptives or hormone replacement Sepsis (< 1 month) Serious lung disease, including pneumonia (< 1 month) Abnormal pulmonary function Acute myocardial infarction Congestive heart failure (< 1 month) History of inflammatory bowel disease Medical patient at bed rest Age 61-74 Arthroscopic surgery Major open surgery (> 45 min) Laparoscopic surgery (> 45 min) Malignancy Confined to bed (> 72 hours) Immobilizing plaster cast Central venous access Age >= 75 History of VTE Family history of VTE Factor V Leiden Prothrombin [id number] Lupus anticoagulant Anticardiolipin antibodies Elevated serum homocysteine Heparin-induced thrombocytopenia Other congenital or acquired thrombophilia Stroke (< 1 month) Elective arthroplasty Hip, pelvis, or leg fracture Acute spinal cord injury (< 1 month) Prophylaxis Regimen: Total Risk Factor Score Risk Level Prophylaxis Regimen 0-1 Low Early ambulation 2 Moderate Order ONE of the following: *Sequential Compression Device (SCD) *Heparin 5000 units SQ BID 3-4 Higher Order ONE of the following medications: *Heparin 5000 units SQ TID *Enoxaparin/Lovenox 40 mg SQ daily (WT < 150 kg, CrCl > 30 mL/min) *Enoxaparin/Lovenox 30 mg SQ daily (WT < 150 kg, CrCl > 10-29 mL/min) *Enoxaparin/Lovenox 30 mg SQ BID (WT < 150 kg, CrCl > 30 mL/min) AND/OR *Sequential Compression Device (SCD) 5 or more Highest Order ONE of the following medications: *Heparin 5000 units SQ TID (Preferred with Epidurals) *Enoxaparin/Lovenox 40 mg SQ daily (WT < 150 kg, CrCl > 30 mL/min) *Enoxaparin/Lovenox 30 mg SQ daily (WT < 150 kg, CrCl > 10-29 mL/min) *Enoxaparin/Lovenox 30 mg SQ BID (WT < 150 kg, CrCl > 30 mL/min) AND *Sequential Compression Device (SCD) Assessment and Plan - Assessment (1) Atypical chest pain Code(s): R07.89 - Other chest pain Status: Acute - Plan This is a 67-year-old female patient presented to the ED with: Back/neck pain with one bout of chest discomfort -Patient presented with complaints of back and neck pain with mild chest discomfort. Denies actual chest pain -Initial 2 troponins negative. Follow third troponin. -EKG reviewed, normal sinus rhythm, controlled heart rate with no ST changes to indicate any ischemia. -Will continue on cardiac telemetry, monitor for any arrhythmias. -CBC and BMP reviewed, essentially unremarkable. Chest x-ray reviewed no acute cardiopulmonary disease noted. -Spoke to Dr. Jamie VIRK, who states that if ACS is ruled out with serial EKGs and serial troponins, patient can be discharged home to follow-up with them in the office this week. -Patient is stable at this time and agreeable to plan. DVT prophylaxis: SCDs/ambulation.
[2018-11-27 15:55] LABS: Creatine Kinase 69 U/L (26-192)
[2018-11-27 16:22] VITALS: BP 135/78; PULSE 71; RESP 21; TEMP 100.3; O2SAT 96
--- NOTE | 2018-11-28 13:42 | ECG ---
Date Performed: 11/27/2018 Time Performed: 15:13:02 PTAGE: 67 years EKG: Sinus rhythm MODERATE VOLTAGE CRITERIA FOR LVH, CONSIDER NORMAL VARIANT INFERIOR MYOCARDIAL INFARCTION Since the previous tracing, no significant change noted ABNORMAL ECG PREVIOUS TRACING : 11/27/2018 12.49 DOCTOR: Arnold De Souza Interpretating Date/Time 11/28/2018 14:43:26
--- NOTE | 2018-11-28 13:43 | ECG ---
Date Performed: 11/27/2018 Time Performed: 09:43:02 PTAGE: 67 years EKG: Sinus rhythm INFERIOR MYOCARDIAL INFARCTION Since the previous tracing, no significant change noted ABNORMAL ECG PREVIOUS TRACING : 07/13/2018 06.33 DOCTOR: Arnold De Souza Interpretating Date/Time 11/28/2018 14:44:15
--- NOTE | 2018-11-28 13:43 | ECG ---
Date Performed: 11/27/2018 Time Performed: 12:49:59 PTAGE: 67 years EKG: Sinus rhythm MODERATE VOLTAGE CRITERIA FOR LVH, CONSIDER NORMAL VARIANT INFERIOR MYOCARDIAL INFARCTION Since the previous tracing, no significant change noted ABNORMAL ECG PREVIOUS TRACING : 11/27/2018 09.43 DOCTOR: Arnold De Souza Interpretating Date/Time 11/28/2018 14:43:50
== END 2018-11-27 18:17 | disposition home or self-care (01) ==
LOC: PHEDA 09:32 → PHED 09:32 → PHEDA 12:56 → PH3 13:07
PROVIDERS: ADMIT Internal Medicine; ATTEND Internal Medicine
CPT/HCPCS: 71010; 71045; 80053; 82550; 84484; 85025; 93005; 99285; G0378